=== PATIENT | female | born 1965 | race Caucasian/White ===

== ENCOUNTER → 2016-08-02 | Outpatient (CLI) | payer BC ==
[~2016-08-02] MED LIST: FRN PO; GADAVIST IV PRN; NORT25CA PO; TOPI50TA16 PO
--- NOTE | 2016-08-02 10:00 | DIAGNOSTIC IMAGING REPORT ---
MRI OF THE BRAIN COMBO CLINICAL HISTORY: Migraine headache. COMPARISON STUDY: MRI of the brain dated 07/10/2014. TECHNIQUE: MRI of the brain was performed utilizing various T1 and T2-weighted sequences in the axial, sagittal, and coronal planes. Contrast-enhanced sequences were acquired following the administration of 6 cc of Gadavist. FINDINGS: Brain parenchyma: The brain parenchyma is normal in appearance. There is no hemorrhage or mass effect. There is no restricted diffusion to suggest acute ischemia. No enhancing mass lesion is identified on the postcontrast images. Bee-white matter differentiation is preserved. No extra-axial fluid collection is seen. 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 The cerebellar tonsils project approximately 5 mm below the foramen magnum. This is similar to previous. Ventricles, sulci, and cisterns: Normal in configuration. Pituitary and sella: Unremarkable. Intracranial vasculature: Normal flow voids are maintained at the skull base. Orbits: The bony orbits are grossly intact. Orbital contents are normal in appearance. Sinuses and mastoids: Clear. Calvarium: Unremarkable. Cervical cord: Partially visualized cervical spinal cord is normal in morphology and signal intensity. IMPRESSION: 1. No acute intracranial abnormality. 2. 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 Electronically signed by: Dante Khan M.D. 08/02/2016 9:58 AM Dictated Date/Time: 08/02/2016 9:54 AM
--- NOTE | 2016-08-02 10:08 | DIAGNOSTIC IMAGING REPORT ---
MRI OF THE CERVICAL SPINE WITH AND WITHOUT CONTRAST CLINICAL HISTORY: Previous C7 surgery with progressive neck pain and swallowing problems. Chiari malformation. Migraine. COMPARISON: MRI the cervical spine December 31, 2009 and cervical spine radiographs February 14, 2010. TECHNIQUE: Utilizing a 1.5 Rianna magnet and dedicated coil, multiplanar, multiecho imaging of the cervical spine was performed before and after intravenous administration of 6 of Gadavist. FINDINGS: There are postsurgical findings consistent with a C6-C7 anterior discectomy and fusion. Cervical cord signal is normal. Mild cerebellar tonsillar ectopia of 4 mm is unchanged since exam of December 31, 2009. There is no intracanalicular mass or fluid collection. Paravertebral soft tissues are unremarkable. C2-C3: The central canal and neural foramen are patent. C3-C4: The central canal is patent. There is moderate left neural foraminal stenosis due to uncovertebral hypertrophy and facet arthrosis. C4-C5: There is a tiny central disc protrusion. There is minimal narrowing of the central canal. The neural foramen are patent. C5-C6: There is a tiny annular tear with minimal disc osteophyte complex. There is minimal narrowing of the central canal. There is mild to moderate narrowing of the right neural foramen. C6-C7: The central canal and neural foramen are patent. C7-T1: The central canal and neural foramen are patent. There is minimal disc bulge. IMPRESSION: 1. Status post C6-C7 anterior discectomy and fusion. Expected post surgical findings. 2. Normal cervical cord signal and caliber. 3. Minimal multilevel central canal stenosis. No significant central canal stenosis. 4. Mild to moderate multilevel neural foraminal narrowing, as described above. Electronically signed by: Srinath Celis M.D. 08/02/2016 10:06 AM Dictated Date/Time: 08/02/2016 9:52 AM
[2016-08-02 14:06] LABS: ALT/SGPT 31 U/L (12-78); AST/SGOT 23 U/L (15-37); BLOOD UREA NITROGEN 15 mg/dl (7-18); BUN/CREATININE RATIO 18.3 (10-20); CALCIUM 9.4 mg/dl (8.5-10.1); CARBON DIOXIDE 24 mmol/L (21-32); CHLORIDE 110 mmol/L (98-107); CREATININE 0.83 mg/dl (0.60-1.20); GLUCOSE 79 mg/dl (70-99); POTASSIUM 3.8 mmol/L (3.5-5.1); SODIUM 144 mmol/L (136-145)
[2016-08-02 14:17] LABS: ALB/GLOB RATIO 1.2 (0.9-2); ALKALINE PHOSPHATASE 71 U/L (45-117)
[2016-08-02 14:32] LABS: BASO % 0.5 %; BASO ABS # 0.02 K/uL (0-0.2); COMPLETE YES; EOS % 1.6 %; HEMATOCRIT 45.6 % (37-47); LYMPH % 34.1 %; LYMPH ABS # 1.27 K/uL (1.2-3.4); MEAN CELL VOLUME 94.2 fL (80-100); MEAN CORPUSCULAR HEMOGLOBIN 31.8 pg (25-34); MEAN CORPUSCULAR HGB CONC 33.8 g/dl (32-36); MEAN PLATELET VOLUME 11.7 fL (7.4-10.4); MONO % 8.6 %; NEUT % 55.2 %; PLATELET COUNT 192 K/uL (130-400); RED BLOOD COUNT 4.84 M/uL (4.2-5.4); WHITE BLOOD COUNT 3.72 K/uL (4.8-10.8)
[2016-08-02 16:53] LABS: LYME DISEASE AB IGG NEG (NEG); LYME DISEASE AB IGM POS (NEG)
[2016-08-08 00:24] LABS: 18KDIGG BAND NONREACTIVE (NONREACTIVE); 23KDIGG BAND NONREACTIVE (NONREACTIVE); 23KDIGM BAND NONREACTIVE (NONREACTIVE); 28KDIGG BAND NONREACTIVE (NONREACTIVE); 30KDIGG BAND NONREACTIVE (NONREACTIVE); 39KDIGG BAND NONREACTIVE (NONREACTIVE); 39KDIGM BAND REACTIVE (NONREACTIVE); 41KDIGG BAND REACTIVE (NONREACTIVE); 41KDIGM BAND NONREACTIVE (NONREACTIVE); 45KDIGG BAND NONREACTIVE (NONREACTIVE); 58KDIGG BAND NONREACTIVE (NONREACTIVE); 66KDIGG BAND NONREACTIVE (NONREACTIVE); 93KDIGG BAND NONREACTIVE (NONREACTIVE)
== END | disposition home or self-care (01) ==
LOC: C.MRIBC 07:53
PROVIDERS: ATTEND Psychiatry & Neurology Neurology
DX: G43.109 Migraine with aura, not intractable, without status migrainosus (principal); G93.5 Compression of brain; R53.82 Chronic fatigue, unspecified

== ENCOUNTER → 2016-08-23 | Outpatient (CLI) | payer BC ==
[~2016-08-23] MED LIST changes: -GADAVIST IV PRN
== END | disposition home or self-care (01) ==
LOC: C.PAPS 10:39
PROVIDERS: ATTEND Obstetrics & Gynecology
DX: Z01.419 Encounter for gynecological examination (general) (routine) without abnormal findings (principal)

== ENCOUNTER → 2017-03-02 | Outpatient (CLI) | payer BC ==
--- NOTE | 2017-03-02 11:36 | DIAGNOSTIC IMAGING REPORT ---
(BARIUM SWALLOW) ESOPHAGUS CLINICAL HISTORY: Dysphagia. Globus sensation. COMPARISON STUDY: None FLUOROSCOPY TIME: 1.6 minutes. NUMBER OF FLUOROSCOPIC IMAGES: 24 FINDINGS: There are postsurgical changes of anterior cervical spinal fusion. The patient swallowed effervescent granules and barium without difficulty. Rapid sequence swallows in the AP and lateral projections were unremarkable. No esophageal masses or strictures were visualized. There is disordered esophageal motility. The patient swallowed one half inch barium tablet which freely passed into the stomach. IMPRESSION: Disordered esophageal motility. Otherwise normal study. Electronically signed by: Christofer Dugan M.D. 03/02/2017 11:34 AM Dictated Date/Time: 03/02/2017 11:33 AM
== END | disposition home or self-care (01) ==
LOC: C.RAD 10:57
PROVIDERS: ATTEND Nurse Practitioner
DX: R13.10 Dysphagia, unspecified (principal)